=== PATIENT | female | born 1975 | race Two or more races ===

== ENCOUNTER 2020-01-20 21:54 | Emergency (ER) | payer MEDICAID ==
[~2020-01-20] VITALS: Ht 162.6 cm; Wt 63.5 kg
[2020-01-20 21:54] VITALS: BP 136/85; Ht 162.6 cm; Wt 63.5 kg
== END 2020-01-20 22:46 | disposition home or self-care (01) ==
LOC: ED 21:54
DX: J03.90 Acute tonsillitis, unspecified (principal)

== ENCOUNTER 2020-01-23 11:07 | Emergency (ER) | payer MEDICAID ==
[~2020-01-23] VITALS: Ht 154.9 cm; Wt 64.9 kg
[2020-01-23 11:36] VITALS: BP 133/76; Ht 154.9 cm; Wt 64.9 kg
== END 2020-01-23 13:11 | disposition home or self-care (01) ==
LOC: ED 11:07
DX: J02.9 Acute pharyngitis, unspecified (principal)
CPT/HCPCS: J1100